=== PATIENT | male | born 1930 | race Caucasian/White ===

== ENCOUNTER → 2017-01-17 | Outpatient (CLI) | payer MEDICARE ==
--- NOTE | 2017-01-21 09:51 | RSPPFT ---
DATE OF PROCEDURE: 01/17/17 COMMENTS: VOLUMES DYNAMIC: FVC and FEV1 normal. STATIC: TLC, RV and FRC mildly reduced. FLOWS: FEV1% and FEF 25-75 super normal. DIFFUSION: Moderately reduced. FLOW VOLUME LOOP: Restrictive configuration. IMPRESSION: Mild restrictive ventilatory defect with a moderate reduction in diffusion and no significant airways obstruction. No significant improvement post-bronchodilator.
== END ==
LOC: HRSP 09:17
PROVIDERS: ATTEND Internal Medicine
DX: J98.4 Other disorders of lung (principal)
CPT/HCPCS: 94060; 94620; 94726; 94729